=== PATIENT | female | born 1965 | race Hispanic/Latino ===

== ENCOUNTER 2022-05-07 15:30 | Outpatient (CLI) | payer SELFPAY | END 2022-05-07 15:31 | disposition home or self-care (01) | LOC: CSHLAB 15:30 | PROVIDERS: ATTEND Obstetrics & Gynecology | DX: Z01.812 Encounter for preprocedural laboratory examination (principal); Z53.9 Procedure and treatment not carried out, unspecified reason | CPT/HCPCS: 84703; 85027; 86850; 86900; 86901; 87811 ==

== ENCOUNTER 2022-05-12 07:04 | Day surgery (SDC) | payer OTHER ==
[2022-05-07 16:29] LABS: Hemoglobin 11.9 g/dL (12.0-15.5); Mean Corpuscular HGB CONC 33.6 g/dL (32.0-36.0); Mean Corpuscular Hemoglobin 28.4 pg (27.0-33.0); Mean Corpuscular Volume 84.5 fl (81.6-98.3); Mean Platelet Volume 11.9 fl (7.4-10.4); Platelet Count 269 10x3/uL (150-450); RBC Distribution Width 13.3 % (11.5-14.5); Red Blood Cell (RBC) Count 4.19 10x6/uL (3.90-5.03); White Blood Cell (WBC) Count 6.9 10x3/uL (3.5-10.5)
[2022-05-07 16:45] LABS: BHCG - Serum Negative (NEGATIVE); Pregs Control Background? CLEAR/WHITE (CLR/WHITE); Pregs Control Bar Appear? YES (CONTROL BAR)
[2022-05-12 07:02] VITALS: BMI 25.7
[~2022-05-12 07:04] MED LIST: Bupivacaine PF 0.5% 30 ML VIAL ONE; CeleCOXIB 100 MG CAP ONE; EPINEPHrine 1 MG/ML AMP ONE; Famotidine/PF 20 mg/2ml Vial ONE; Gabapentin 300 MG CAP ONE; Lidocaine 1% MPF 2 ML VIAL ONE; Lidocaine 4% Topical Sol 50 ML BOT ONE
[2022-05-12] MEDS ORDERED: Rocuronium Bromide 10 MG/ML (10ML VIAL) ONE (07:09)
[2022-05-12] MEDS ORDERED: Lidocaine 1% PF 5 ML VIAL ONE (07:09)
[2022-05-12] MEDS ORDERED: Ketorolac Tromethamine 30 MG/ML VIAL ONE (07:09)
[2022-05-12] MEDS ORDERED: Midazolam HCl 2 mg/2 ml Vial ONE (07:09)
[2022-05-12] MEDS ORDERED: Ondansetron PF 4 MG/2 ML Vial ONE (07:09)
[2022-05-12] MEDS ORDERED: Dexamethasone 20 MG/5 ML VIAL ONE (07:09)
[2022-05-12] MEDS ORDERED: Glycopyrrolate 0.2 MG/ML 5 ML SYRINGE ONE (07:09)
[2022-05-12] MEDS ORDERED: Fentanyl 100 MCG/2 ML VIAL ONE ×2 (07:10→09:41)
[2022-05-12] MEDS ORDERED: PROPOFOL 20 ML ONE (07:12)
[2022-05-12] MEDS ORDERED: CEFAZOLIN 2 GM VIAL ONE (07:26)
[2022-05-12] MEDS ORDERED: Phenylephrine 10 MG/ML VIAL ONE (08:20)
[2022-05-12] MEDS ORDERED: HYDROcodone/Acetaminophen 5/325 mg Tablet ONE (10:42)
== END 2022-05-12 13:30 | disposition home or self-care (01) ==
LOC: CSHSDC 07:04
PROVIDERS: ATTEND Obstetrics & Gynecology
PROC: 0USG4ZZ Reposition Vagina, Percutaneous Endoscopic Approach (ICD-10-PCS; principal; 2022-05-12)
PROC: 0UT74ZZ Resection of Bilateral Fallopian Tubes, Percutaneous Endoscopic Approach (ICD-10-PCS; principal; 2022-05-12)
PROC: 0UT24ZZ Resection of Bilateral Ovaries, Percutaneous Endoscopic Approach (ICD-10-PCS; principal; 2022-05-12)
PROC: 0UT94ZZ Resection of Uterus, Percutaneous Endoscopic Approach (ICD-10-PCS; principal; 2022-05-12)
DX: N81.3 Complete uterovaginal prolapse (principal); N87.9 Dysplasia of cervix uteri, unspecified; N88.8 Other specified noninflammatory disorders of cervix uteri; N80.0 Endometriosis of uterus; D27.0 Benign neoplasm of right ovary; Z20.822 Contact with and (suspected) exposure to COVID-19; E11.9 Type 2 diabetes mellitus without complications; I10 Essential (primary) hypertension; Z79.84 Long term (current) use of oral hypoglycemic drugs; Z79.899 Other long term (current) drug therapy
CPT/HCPCS: 84703; 85027; 86850; 86900; 86901; 87811; 88307; C1776; J0171; J0690; J1100; J1885; J2250; J2370; J2405; J2704; J3010; S0020; S0028